=== PATIENT | female | born 1970 | race Caucasian/White ===

== ENCOUNTER 2020-11-01 10:16 | Inpatient (IN) | payer MEDICAID, OTHER ==
[~2020-11-01] VITALS: Ht 167.6 cm; Wt 66.7 kg
[2020-11-01] VITALS (8 sets, daily range): BP systolic 104–119; BP diastolic 42–72
[2020-11-01 11:24] LABS: BASOPHILS % 0.4 % (0.0-2.0); EOSINOPHILS % 2.9 % (0.0-5.0); LYMPHOCYTES % 37.1 % (20.0-50.0); MEAN CORPUSCULAR HEMOGLOBIN 40.9 pg (28.0-32.0); MEAN CORPUSCULAR VOLUME 115.7 fL (81.0-99.0); MEAN PLATELET VOLUME 8.7 fl (7.4-10.4); MONOCYTES % 11.3 % (2.0-8.0); NEUTROPHILS % 48.3 % (40.0-76.0); RED BLOOD CELL COUNT 1.72 mill/uL (4.2-5.4); RED CELL DISTRIBUTION WIDTH 29.9 % (11.6-14.6)
[2020-11-01 11:31] LABS: CHLORIDE 107 mEq/L (98-107)
[2020-11-01 11:36] LABS: HEMATOCRIT. 19.9 % (36.0-48.0)
[2020-11-01 11:37] LABS: PLATELET 27 x1000/uL (130-400)
[2020-11-01 11:57] LABS: PLATELET ESTIMATE MARKEDLY DECREASED
[2020-11-01] MEDS ORDERED: CLONIDINE 0.1MG TABLET PO PRN (13:00)
[2020-11-01] MEDS ORDERED: DIPHENHYDRAMINE 50MG/ML VIAL IV PRN (13:00)
[2020-11-01] MEDS ORDERED: ONDANSETRON HCL 4MG/2ML INJ IV PRN (13:00)
[2020-11-01] MEDS ORDERED: IPRATROPIUM/ALBUTEROL 0.5-3(2.5)MG/3ML NEB HHN PRN (13:00)
[2020-11-01] MEDS ORDERED: GUAIFENESIN 200MG/10ML SUGAR FREE UDC PO PRN (13:00)
[2020-11-01] MEDS ORDERED: ACETAMINOPHEN 325MG TABLET PO PRN (13:00)
[2020-11-01] MEDS ORDERED: LORAZEPAM 2MG/ML CPJ IV PRN (13:00)
[2020-11-01] MEDS ORDERED: MAGNESIUM/ALUMINUM HYDROXIDE/SIMETHICONE 30ML UDC PO PRN (13:00)
[2020-11-01] MEDS ORDERED: HYDROCODONE/ACETAMINOPHEN 5/325MG TABLET PO PRN (13:00)
[2020-11-01] MEDS ORDERED: HYDRALAZINE 20MG/ML VIAL IV PRN (13:00)
[2020-11-01] MEDS ORDERED: MORPHINE SULFATE 2 MG/ML CPJ (NOT FOR IM USE) IV PRN (13:00)
[2020-11-01] MEDS ORDERED: DOCUSATE SODIUM 100MG CAPSULE PO PRN (13:00)
[2020-11-01] MEDS: SODIUM CHLORIDE 0.9% INJ 3ML FLUSH IVF SCH ×2 (14:02→21:19)
[2020-11-01] MEDS ORDERED: VALA100044 PO (18:47)
[2020-11-01] MEDS ORDERED: LORA10TA7 PO (18:47)
[2020-11-01] MEDS ORDERED: ELTR75TA PO (18:47)
[2020-11-01] MEDS ORDERED: ONDA4TAB5 MT (18:47)
[2020-11-01] MEDS ORDERED: TOPI100T37 PO (18:47)
[2020-11-01] MEDS ORDERED: MULT-1146 MT (18:47)
[2020-11-01] MEDS ORDERED: CYCL25CA12 PO (18:47)
[2020-11-01] MEDS ORDERED: GABA-529 PO (18:47)
[2020-11-01] MEDS ORDERED: CYAN100086 PO (18:47)
[2020-11-01] MEDS ORDERED: DULO30CA2 PO (18:47)
[2020-11-01] MEDS ORDERED: FOLI0.4T6 PO (18:47)
[2020-11-01] MEDS ORDERED: URSO300C4 MT (18:47)
[2020-11-01] MEDS ORDERED: ISAV186C2 MT (18:47)
[2020-11-01] MEDS ORDERED: OXYC5POW MC (18:56)
[2020-11-01] MEDS ORDERED: PROC5TAB55 PO (18:56)
[2020-11-01] MEDS ORDERED: HYDR-3992 MT (18:56)
[2020-11-01] MEDS ORDERED: SENN-257 PO (18:56)
[2020-11-01] MEDS ORDERED: LORA-250 PO (18:56)
[2020-11-01] MEDS ORDERED: DICY20TA11 PO (18:56)
[2020-11-01] MEDS ORDERED: SUMA100T PO (18:56)
[2020-11-02] VITALS: BP 122/62
[2020-11-02 04:00] VITALS: BP 125/44
[2020-11-02 06:40] LABS: BASOPHILS % 0.3 % (0.0-2.0); EOSINOPHILS % 2.9 % (0.0-5.0); HEMATOCRIT. 22.1 % (36.0-48.0); HEMOGLOBIN. 7.8 g/dL (12.0-16.0); LYMPHOCYTES % 33.9 % (20.0-50.0); MEAN CORPUSCULAR HEMOGLOBIN 38.3 pg (28.0-32.0); MEAN PLATELET VOLUME 8.3 fl (7.4-10.4); MONOCYTES % 14.2 % (2.0-8.0); NEUTROPHILS % 48.7 % (40.0-76.0); RED BLOOD CELL COUNT 2.05 mill/uL (4.2-5.4)
[2020-11-02 06:41] LABS: CHLORIDE 112 mEq/L (98-107)
[2020-11-02] MEDS: SODIUM CHLORIDE 0.9% INJ 3ML FLUSH IVF SCH ×2 (06:46→14:18)
[2020-11-02 08:00] VITALS: BP 113/60
[2020-11-02 08:22] LABS: PLATELET 22 x1000/uL (130-400)
[2020-11-02 11:58] VITALS: BP 115/63
[2020-11-02 15:18] VITALS: BP 115/63
[2020-11-02 16:00] VITALS: BP 112/63
== END 2020-11-02 18:45 | disposition home or self-care (01) | DRG 660 ==
LOC: ER 10:16 → 5WST 12:48 → ENRESERV 14:07 → 5WST 14:57
PROVIDERS: ADMIT Internal Medicine; ATTEND Internal Medicine
PROC: 30233N1 Transfusion of Nonautologous Red Blood Cells into Peripheral Vein, Percutaneous Approach (ICD-10-PCS; principal; 2020-11-01)
DX: D61.9 Aplastic anemia, unspecified (principal); E46 Unspecified protein-calorie malnutrition; Z68.23 Body mass index [BMI] 23.0-23.9, adult
CPT/HCPCS: 36415; 80053; 84484; 85025; 86850; 86870; 86900; 86920; 93005; 93970; 99291; J7040; P9016

== ENCOUNTER 2021-01-18 21:12 | Inpatient (IN) | payer MEDICAID ==
[~2021-01-18] VITALS: Ht 167.6 cm; Wt 64.0 kg
[~2021-01-18 21:12] MED LIST: CYAN100086 PO; CYCL25CA12 PO; DICY20TA11 PO; DULO30CA2 PO; ELTR75TA PO; FOLI0.4T6 PO; GABA-529 PO; HYDR-3992 MT; ISAV186C2 MT; LORA-250 PO; LORA10TA7 PO; MULT-1146 MT; ONDA4TAB5 MT; OXYC5POW MC; PROC5TAB55 PO; SENN-257 PO; SUMA100T PO; TOPI100T37 PO; URSO300C4 MT; VALA100044 PO
[2021-01-19 00:12] LABS: BASOPHILS % 0.1 % (0.0-2.0); EOSINOPHILS % 2.3 % (0.0-5.0); MEAN CORPUSCULAR HEMOGLOBIN 46.6 pg (28.0-32.0); MEAN CORPUSCULAR VOLUME 135.1 fL (81.0-99.0); MEAN PLATELET VOLUME 8.4 fl (7.4-10.4); NEUTROPHILS % 41.6 % (40.0-76.0); RED BLOOD CELL COUNT 1.17 mill/uL (4.2-5.4)
[2021-01-19 00:18] LABS: HEMATOCRIT. 15.8 % (36.0-48.0); HEMOGLOBIN. 5.4 g/dL (12.0-16.0); PLATELET 23 x1000/uL (130-400)
[2021-01-19 00:20] LABS: CHLORIDE 109 mEq/L (98-107)
[2021-01-19 00:21] LABS: INR 1.1; PROTHROMBIN TIME 11.6 sec (9.6-11.0)
[2021-01-19 01:45] LABS: CLARITY URINE CLOUDY (CLEAR); COLOR URINE YELLOW (YELLOW); KETONES URINE NEGATIVE (NEGATIVE); LEUKOCYTE ESTERASE URINE TRACE (NEGATIVE); NITRITE URINE NEGATIVE (NEGATIVE); OCCULT BLOOD URINE NEGATIVE (NEGATIVE); PROTEIN URINE TRACE (NEGATIVE); SPECIFIC GRAVITY URINE 1.014 (1.005-1.030)
[2021-01-19 05:18] LABS: PLATELET ESTIMATE DECREASED
[2021-01-19] MEDS ORDERED: ONDANSETRON HCL 4MG/2ML INJ IV PRN (06:30)
[2021-01-19] MEDS ORDERED: CLONIDINE 0.1MG TABLET PO PRN (06:30)
[2021-01-19] MEDS ORDERED: MAGNESIUM/ALUMINUM HYDROXIDE/SIMETHICONE 30ML UDC PO PRN (06:30)
[2021-01-19] MEDS ORDERED: DOCUSATE SODIUM 100MG CAPSULE PO PRN (06:30)
[2021-01-19] MEDS ORDERED: ACETAMINOPHEN 325MG TABLET PO PRN (06:30)
[2021-01-19] MEDS ORDERED: GUAIFENESIN 200MG/10ML SUGAR FREE UDC PO PRN (06:30)
[2021-01-19] MEDS ORDERED: NALOXONE HCL 0.4MG/ML VIAL IV PRN (07:30)
[2021-01-19 12:00] VITALS: BP 115/59
[2021-01-19 12:28] VITALS: BP 115/59
[2021-01-19] MEDS ORDERED: PROC5TAB12 PO (13:00)
[2021-01-19] MEDS ORDERED: FOLI0.8C PO (13:00)
[2021-01-19] MEDS ORDERED: URSO250T12 PO (13:00)
[2021-01-19] MEDS ORDERED: HYDR-3992 PO (13:00)
[2021-01-19] MEDS ORDERED: DULO30CA52 PO (13:00)
[2021-01-19] MEDS ORDERED: VALA100044 PO (13:00)
[2021-01-19] MEDS ORDERED: SUMA100T16 PO (13:00)
[2021-01-19] MEDS ORDERED: SENN-257 PO (13:00)
[2021-01-19] MEDS ORDERED: TOPI100T37 PO (13:00)
[2021-01-19] MEDS ORDERED: CYCL25CA PO (13:00)
[2021-01-19] MEDS ORDERED: MULT-1146 MT (13:00)
[2021-01-19 13:11] LABS: TOTAL IRON BINDING CAPACITY 251 ug/dL (250-450)
[2021-01-19 16:00] VITALS: BP 122/62
[2021-01-19] MEDS: HYDROMORPHONE HCL/PF 2MG/ML CPJ IV PRN (16:27)
[2021-01-19 18:21] LABS: HEMOGLOBIN 6.7 g/dL (12.0-16.0)
[2021-01-19 20:00] VITALS: BP 123/72
[2021-01-20] VITALS (11 sets, daily range): BP systolic 96–153; BP diastolic 52–85
[2021-01-20 06:48] LABS: BASOPHILS % 0.3 % (0.0-2.0); EOSINOPHILS % 2.9 % (0.0-5.0); HEMOGLOBIN. 8.4 g/dL (12.0-16.0); LYMPHOCYTES % 37.4 % (20.0-50.0); MEAN CORPUSCULAR VOLUME 105.7 fL (81.0-99.0); MEAN PLATELET VOLUME 8.5 fl (7.4-10.4); MONOCYTES % 13.5 % (2.0-8.0); NEUTROPHILS % 45.9 % (40.0-76.0); RED BLOOD CELL COUNT 2.27 mill/uL (4.2-5.4); RED CELL DISTRIBUTION WIDTH 31.3 % (11.6-14.6)
[2021-01-20 06:50] LABS: CHLORIDE 113 mEq/L (98-107)
[2021-01-20] MEDS: HYDROMORPHONE HCL/PF 2MG/ML CPJ IV PRN ×2 (10:41→23:18)
[2021-01-20 13:41] LABS: PLATELET 17 x1000/uL (130-400)
[2021-01-20] MEDS ORDERED: SUMATRIPTAN SUCCINATE 6MG/0.5ML VIAL SUBCUT NR (18:45)
[2021-01-20] MEDS ORDERED: SUMATRIPTAN SUCCINATE 25MG TABLET PO ONE (19:00)
[2021-01-21] VITALS: BP 121/62
[2021-01-21 04:00] VITALS: BP 98/60
[2021-01-21 12:15] VITALS: BP 105/54
== END 2021-01-21 17:15 | disposition home or self-care (01) | DRG 660 ==
LOC: ER 21:12 → MICUSO 01-19 01:27 → 6EST 01-19 09:00
PROVIDERS: ADMIT Hospitalist; ATTEND Hospitalist
PROC: 30233N1 Transfusion of Nonautologous Red Blood Cells into Peripheral Vein, Percutaneous Approach (ICD-10-PCS; principal; 2021-01-19)
DX: D61.818 Other pancytopenia (principal); Z88.1 Allergy status to other antibiotic agents; Z88.5 Allergy status to narcotic agent
CPT/HCPCS: 36415; 71045; 80053; 81003; 83540; 83550; 85014; 85018; 85025; 85049; 86850; 86870; 86900; 86920; 93005; 99291; J1170; J3030; J7040; P9016; P9034